=== PATIENT | female | born 1950 | race Caucasian/White ===

== ENCOUNTER 2023-09-29 07:17 | Emergency (ER) | payer OTHER ==
[~2023-09-29] VITALS: Ht 152.4 cm; Wt 59.0 kg
[~2023-09-29 07:17] MED LIST: PREDNISONE20 MG PO; SYNTHROID50 MCG PO; Synthroid PO
[2023-09-29 09:47] LABS: HEMATOCRIT 34.9 % (36.0-45.00); HEMOGLOBIN 11.6 g/dL (12.0-15.00); MEAN CELL VOLUME 79.8 fL (80.00-100.00); MEAN CORPUSCULAR HEMOGLOBIN 26.4 pg (27.00-32.0); MEAN CORPUSCULAR HGB CONC 33.1 g/dl (32.0-36.0); RED BLOOD COUNT 4.38 M/uL (4.00-6.00); RED CELL DISTRIBUTION WIDTH 14.5 % (11.5-14.5)
[2023-09-29 09:48] LABS: PLATELET COUNT 40 K/uL (150-450)
[2023-09-29 10:01] LABS: CALCIUM 9.4 mg/dL (8.5-10.1); CREATININE SERUM 0.64 mg/dL (0.55-1.02); GFR 91.22; POTASSIUM 3.48 mEq/L (3.5-5.1)
== END 2023-09-29 12:21 | disposition home or self-care (01) ==
LOC: ER 07:18
PROVIDERS: General Practice
DX: R55 Syncope and collapse (principal); S40.011A Contusion of right shoulder, initial encounter; W18.39XA Other fall on same level, initial encounter; Y93.89 Activity, other specified; Y92.89 Other specified places as the place of occurrence of the external cause; Z86.73 Personal history of transient ischemic attack (TIA), and cerebral infarction without residual deficits; Z88.2 Allergy status to sulfonamides; Z88.0 Allergy status to penicillin; Z88.6 Allergy status to analgesic agent; I10 Essential (primary) hypertension